=== PATIENT | female | born 2005 | race Caucasian/White ===

== ENCOUNTER 2025-02-18 23:29 | Emergency (ER) | payer SELFPAY ==
[~2025-02-18] VITALS: Ht 160 cm; Wt 54.4 kg
[2025-02-19 01:32] LABS: BILIRUBIN Negative (Negative); BLOOD 3+ (Negative); CLARITY Clear (Clear); COLOR Yellow (Yellow); KETONE Trace (Negative); LEUKO ESTERASE 1+ (Negative); NITRITE Negative (Negative); PH 6.0 (4.5-8.0); SPECIFIC GRAVITY >= 1.030 (1.001-1.030); UROBILINOGEN 2.0 E.U./dl (0.0-1.0)
[2025-02-19 01:46] LABS: BACTERIA TRACE; EPITHELIAL CELLS 31-40; RBC 41-50 rbc/hpf (0-2)
[2025-02-19] MEDS ORDERED: CEPHALEXIN500 M1 PO ×2 (01:57→17:36)
[2025-02-19] MEDS ORDERED: CEPHALEXIN 500 MG CAP PO ONE (02:00)
== END 2025-02-19 02:14 | disposition home or self-care (01) ==
LOC: ED 23:29
PROVIDERS: Nurse Practitioner Family
DX: O23.41 Unspecified infection of urinary tract in pregnancy, first trimester (principal); O46.91 Antepartum hemorrhage, unspecified, first trimester; Z3A.11 11 weeks gestation of pregnancy